=== PATIENT | female | born 1945 | race Caucasian/White ===

== ENCOUNTER 2020-03-06 09:13 | Outpatient (CLI) | payer MEDICARE, SELFPAY ==
[2020-03-06 09:46] LABS: Creatinine Urine 175.78 mg/dL (40-278)
[2020-03-06 09:47] LABS: MALB Creatinine Ratio 29.6 mg/g (0-30); Microalbumin Urine Random 52.2 mg/L
[2020-03-06 09:53] LABS: Hemoglobin A1C 6.3 % (<5.7)
[2020-03-06 10:04] LABS: Alanine Aminotransferase 18 U/L (14-59); Albumin Level 3.3 g/dL (3.4-5.0); Alkaline Phosphatase 115 U/L (46-116); Anion Gap 16.3 mmol/L (7-16); Aspartate Amino Transferase 17 U/L (15-37); Bilirubin,Total 0.9 mg/dL (0.00-1.00); Blood Urea Nitrogen 19 mg/dL (7-18); Calcium 8.9 mg/dL (8.5-10.1); Carbon Dioxide 25 mmol/L (21-32); Chloride 104 mmol/L (98-108); Estimated Glomerular Filt Rate 42; Glucose 134 mg/dL (70-99); Osmolality Calculated 296 mOsm/kg (285-295); Potassium 4.3 mmol/L (3.5-5.1); Sodium 141 mmol/L (136-145); Total Protein 6.3 g/dL (6.4-8.2)
== END 2020-03-06 09:14 | disposition home or self-care (01) ==
PROVIDERS: PCP Family Medicine; Visit Provider Family Medicine
DX: E11.9 Type 2 diabetes mellitus without complications (principal)
CPT/HCPCS: 36415; 80053; 82043; 83036

== ENCOUNTER 2020-06-14 18:50 | Emergency (ER) | payer MEDICARE, SELFPAY ==
[2020-06-14 18:54] VITALS: BP 203/105; PULSE 68; RESP 16; TEMP 36.2; O2SAT 100
--- NOTE | 2020-06-14 21:10 | ED.BACK ---
HPI - Back Pain/Injury General Chief Complaint: Back Pain/Injury Stated Complaint: sciatica in her hip Time Seen by Provider: 06/14/20 19:34 Source: patient Mode of arrival: ambulatory Limitations: no limitations History of Present Illness HPI Narrative: Patient is a 74-year-old female who presents complaining of right lower back pain that radiates into her right leg. She reports pain is sharp, burning and intermittent. She reports pain x2 days. She denies injury, denies numbness or tingling. She denies taking [id number] medications for pain. MD elicited complaint: back pain Quality: burning and sharp Related Data Home Medications Medication Instructions Recorded Confirmed nabumetone 750 mg tablet 750 mg PO BID PRN 03/05/20 Allergies Allergy/AdvReac Type Severity Reaction Status Date / Time nifedipine [Procardia] Allergy Unknown Unknown Verified 06/14/20 18:58 Review of Systems Review of Systems: Narrative: CONSTITUTIONAL: Denies fever, chills, or sweats. EYES: Denies visual changes, redness, or discharge. ENT: Denies rhinorrhea, congestion, sore throat, or otalgia. CARDIOVASCULAR: Denies chest pain, palpitations, or edema. RESPIRATORY: Denies cough or dyspnea. GASTROINTESTINAL: Denies abdominal pain, nausea, vomiting, or diarrhea. GENITOURINARY: Denies dysuria or hematuria. SKIN: Denies rash or itching. MUSCULOSKELETAL: Reports back pain, denies joint pain, or myalgia. NEUROLOGIC: Denies headache, numbness, dizziness, or weakness. PSYCHIATRIC: Denies anxiety or depression. PMFSH Past Medical History Medical History DM2 (diabetes mellitus, type 2) Gout Hyperlipidemia Hypertension Osteoarthritis Overweight Surgical History Surgical History History of cholecystectomy History of elbow surgery Social History Social History Smoking status: Never smoker Additional living arrangements comments: . 2 children. 1 step-child Additional occupation/education comments: Prior: [employer] Install[employer] Exam Narrative: Exam Narrative: GENERAL: Well-appearing, well-nourished, and in no acute distress. HEAD: Normocephalic, atraumatic. EYES: No redness or drainage. Conjunctiva are normal. ENT: Mucous membranes pink and moist. NECK: AROM. Supple. No lymphadenopathy. CHEST: No respiratory distress. Clear to auscultation. HEART: Regular rate and rhythm. No murmur appreciated. Normal peripheral pulses. MUSCULOSKELETAL: No bony tenderness. EXTREMITIES: Normal range of motion. No edema. SKIN: Warm, dry, no rash. NEURO: No focal deficits. Alert and oriented x3. PSYCH: Normal affect. No signs of depression or anxiety. Course Vital Signs Vital signs: Vital Signs Temperature 36.2 C L 06/14/20 18:54 Pulse Rate 68 06/14/20 18:54 Respiratory Rate 16 06/14/20 18:54 Blood Pressure 203/105 H 06/14/20 18:54 Pulse Oximetry 100 06/14/20 18:54 Temperature 36.2 C L 06/14/20 18:54 Pulse Rate 68 06/14/20 18:54 Respiratory Rate 16 06/14/20 18:54 Blood Pressure 203/105 H 06/14/20 18:54 Pulse Oximetry 100 06/14/20 18:54 Reviewed. Patient has been instructed to follow-up with her PCP regarding her blood pressure. Patient given 0.1mg Clonidine in the ED to decrease blood pressure from 203/105 to 161/90 MDM - Back Pain/Injury MDM Narrative Medical decision making narrative: Patient most likely has sciatica. Discussed starting Medrol dose pack and the need to check blood sugars frequently while taking and to expect that blood sugar may be higher than normal. Discussed patient's blood pressure and that follow up with pcp is needed. Patient's blood pressure treated prior to discharge. Patient verbalizes understanding. Patient is stable for discharge to home with outpatient follow up as discussed. Critical Care Time Critic
[2020-06-14] MEDS: cloNIDine HCL 0.1 MG TABLET PO (21:50)
[2020-06-14 22:03] VITALS: BP 161/90; PULSE 78; RESP 16; TEMP 36.4; O2SAT 96
== END 2020-06-14 22:04 | disposition home or self-care (01) ==
PROVIDERS: Emergency Provider Nurse Practitioner; PCP Family Medicine
DX: M54.41 Lumbago with sciatica, right side (principal); I10 Essential (primary) hypertension; E11.9 Type 2 diabetes mellitus without complications; E78.5 Hyperlipidemia, unspecified; M10.9 Gout, unspecified; M19.90 Unspecified osteoarthritis, unspecified site; E66.3 Overweight; Z68.26 Body mass index [BMI] 26.0-26.9, adult
CPT/HCPCS: 99283; A9270

== ENCOUNTER 2020-06-18 14:44 | Outpatient (CLI) | payer MEDICARE, SELFPAY | END 2020-06-18 14:45 | disposition home or self-care (01) | LOC: CHSLAB 14:47 | PROVIDERS: PCP Family Medicine; Visit Provider Family Medicine | DX: E11.9 Type 2 diabetes mellitus without complications (principal) | CPT/HCPCS: 36415; 83036 ==

== ENCOUNTER 2020-08-03 07:58 | Outpatient (CLI) | payer MEDICARE, SELFPAY ==
[2020-08-03 09:27] LABS: Anion Gap 10 mmol/L (8-16); Blood Urea Nitrogen 29 mg/dL (7-18); Carbon Dioxide 26 mmol/L (21-32); Chloride 105 mmol/L (98-108); Estimated Glomerular Filt Rate 36; Glucose 130 mg/dL (70-99); Osmolality Calculated 299 mOsm/kg (285-295); Potassium 4.6 mmol/L (3.5-5.1); Sodium 141 mmol/L (136-145)
== END 2020-08-03 07:59 | disposition home or self-care (01) ==
LOC: CHSLAB 08:00
PROVIDERS: PCP Family Medicine; Visit Provider Family Medicine
DX: N18.9 Chronic kidney disease, unspecified (principal)
CPT/HCPCS: 36415; 80048

== ENCOUNTER 2020-10-19 08:59 | Outpatient (CLI) | payer MEDICARE, SELFPAY ==
[2020-10-19 09:21] LABS: Hemoglobin A1C 5.7 % (<5.7)
[2020-10-19 10:00] LABS: Anion Gap 10 mmol/L (8-16); Blood Urea Nitrogen 18 mg/dL (7-18); Calcium 8.7 mg/dL (8.5-10.1); Carbon Dioxide 28 mmol/L (21-32); Chloride 100 mmol/L (98-108); Estimated Glomerular Filt Rate 52; Glucose 135 mg/dL (70-99); Osmolality Calculated 289 mOsm/kg (285-295); Potassium 3.8 mmol/L (3.5-5.1); Sodium 138 mmol/L (136-145)
== END 2020-10-19 09:00 | disposition home or self-care (01) ==
LOC: CHSLAB 09:01
PROVIDERS: PCP Family Medicine; Visit Provider Family Medicine
DX: N18.9 Chronic kidney disease, unspecified (principal); E11.9 Type 2 diabetes mellitus without complications
CPT/HCPCS: 36415; 80048; 83036

== ENCOUNTER 2020-12-04 07:47 | Outpatient (CLI) | payer MEDICARE, SELFPAY ==
--- NOTE | ~2020-12-04 | US_ITS ---
US retroperitoneal comp 12/04/2020 08:32 Procedure: Realtime transabdominal ultrasound of the kidneys and bladder. Indication: Chronic kidney disease Comparison: 05/04/2017 Findings: Renal echotexture is normal bilaterally without hydronephrosis, contour deforming mass or r enal calculus. The right kidney measures 9.5 cm and left kidney measures 8 cm. Bladder within normal limits. Impression: 1: Unremarkable renal ultrasound. No stones, masses or hydronephrosis. Reviewed, dictated and finalized at location A. Impression: 1: Unremarkable renal ultrasound. No stones, masses or hydronephrosis.
== END 2020-12-04 07:48 | disposition home or self-care (01) ==
LOC: CHSIMG 07:50
PROVIDERS: PCP Family Medicine; Visit Provider Internal Medicine Nephrology
DX: N18.32 Chronic kidney disease, stage 3b (principal)
CPT/HCPCS: 76770

== ENCOUNTER 2021-01-02 09:13 | Outpatient (CLI) | payer MEDICARE, SELFPAY ==
[2021-01-02 09:49] LABS: Creatinine Urine 90.28 mg/dL (40-278); Total Protein Urine Random 13.1 mg/dL (0.0-11.9); Ur Ttl Prot Creatinine Ratio 0.15 mg/mg (0-0.20)
[2021-01-02 10:26] LABS: Albumin Level 2.6 g/dL (3.4-5.0); Anion Gap 8 mmol/L (8-16); Blood Urea Nitrogen 16 mg/dL (7-18); Calcium 8.4 mg/dL (8.5-10.1); Carbon Dioxide 29 mmol/L (21-32); Chloride 103 mmol/L (98-108); Estimated Glomerular Filt Rate 55; Glucose 141 mg/dL (70-99); Osmolality Calculated 293 mOsm/kg (285-295); Phosphorus 4.1 mg/dL (2.6-4.7); Potassium 3.8 mmol/L (3.5-5.1); Sodium 140 mmol/L (136-145)
== END 2021-01-02 09:14 | disposition home or self-care (01) ==
LOC: CHSLAB 09:15
PROVIDERS: PCP Family Medicine; Visit Provider Internal Medicine Nephrology
DX: E11.29 Type 2 diabetes mellitus with other diabetic kidney complication (principal); I12.9 Hypertensive chronic kidney disease with stage 1 through stage 4 chronic kidney disease, or unspecified chronic kidney disease; N18.31 Chronic kidney disease, stage 3a
CPT/HCPCS: 36415; 80069; 82570; 84156

== ENCOUNTER 2021-06-06 07:26 | Outpatient (CLI) | payer MEDICARE, SELFPAY ==
[2021-06-06 07:45] LABS: Creatinine Urine 56.71 mg/dL (40-278); Total Protein Urine Random 16.1 mg/dL (0.0-11.9); Ur Ttl Prot Creatinine Ratio 0.28 mg/mg (0-0.20)
[2021-06-06 08:28] LABS: Albumin Level 3.2 g/dL (3.4-5.0); Anion Gap 10 mmol/L (8-16); Calcium 8.6 mg/dL (8.5-10.1); Carbon Dioxide 26 mmol/L (21-32); Chloride 106 mmol/L (98-108); Estimated Glomerular Filt Rate 52; Glucose 122 mg/dL (70-99); Phosphorus 4.1 mg/dL (2.6-4.7); Potassium 4.1 mmol/L (3.5-5.1); Sodium 142 mmol/L (136-145)
[2021-06-06 09:00] LABS: Blood Urea Nitrogen 23 mg/dL (7-18); Osmolality Calculated 298 mOsm/kg (285-295)
[2021-06-09 20:01] LABS: Vitamin D 25 Hydroxy 10 ng/mL (30-100)
[2021-06-10 14:46] LABS: Parathyroid Intact 91 pg/mL (14-64)
== END 2021-06-06 07:27 | disposition home or self-care (01) ==
LOC: CHSLAB 07:28
PROVIDERS: PCP Family Medicine; Visit Provider Internal Medicine Nephrology
DX: N18.31 Chronic kidney disease, stage 3a (principal); I12.9 Hypertensive chronic kidney disease with stage 1 through stage 4 chronic kidney disease, or unspecified chronic kidney disease; E11.29 Type 2 diabetes mellitus with other diabetic kidney complication; R80.8 Other proteinuria
CPT/HCPCS: 36415; 80069; 82306; 82570; 83970; 84156

== ENCOUNTER 2021-10-09 08:48 | Outpatient (CLI) | payer MEDICARE, SELFPAY ==
[2021-10-09 09:50] LABS: Albumin Level 3.5 g/dL (3.4-5.0); Anion Gap 9 mmol/L (8-16); Blood Urea Nitrogen 27 mg/dL (7-18); Calcium 8.7 mg/dL (8.5-10.1); Carbon Dioxide 27 mmol/L (21-32); Chloride 103 mmol/L (98-108); Estimated Glomerular Filt Rate 48; Glucose 133 mg/dL (70-99); Osmolality Calculated 295 mOsm/kg (285-295); Phosphorus 4.4 mg/dL (2.6-4.7); Potassium 4.2 mmol/L (3.5-5.1); Sodium 139 mmol/L (136-145)
== END 2021-10-09 08:49 | disposition home or self-care (01) ==
LOC: CHSLAB 08:51
PROVIDERS: PCP Family Medicine; Visit Provider Internal Medicine Nephrology
DX: N18.31 Chronic kidney disease, stage 3a (principal)
CPT/HCPCS: 36415; 80069

== ENCOUNTER 2022-01-02 08:35 | Outpatient (CLI) | payer MEDICARE, SELFPAY ==
[2022-01-02 09:58] LABS: Albumin Level 3.2 g/dL (3.4-5.0); Anion Gap 9 mmol/L (8-16); Blood Urea Nitrogen 21 mg/dL (7-18); Calcium 8.7 mg/dL (8.5-10.1); Carbon Dioxide 26 mmol/L (21-32); Chloride 104 mmol/L (98-108); Estimated Glomerular Filt Rate 44; Glucose 210 mg/dL (70-99); Osmolality Calculated 297 mOsm/kg (285-295); Phosphorus 4.2 mg/dL (2.6-4.7); Potassium 4.2 mmol/L (3.5-5.1); Sodium 139 mmol/L (136-145)
== END 2022-01-02 08:36 | disposition home or self-care (01) ==
LOC: CHSLAB 08:38
PROVIDERS: PCP Family Medicine; Visit Provider Internal Medicine Nephrology
DX: N18.31 Chronic kidney disease, stage 3a (principal)
CPT/HCPCS: 36415; 80069

== ENCOUNTER 2022-05-23 08:23 | Outpatient (CLI) | payer MEDICARE, SELFPAY ==
[2022-05-23 08:42] LABS: Creatinine Urine 72.87 mg/dL (40-278); Total Protein Urine Random 10.2 mg/dL (0.0-11.9); Ur Ttl Prot Creatinine Ratio 0.14 mg/mg (0-0.20)
[2022-05-23 08:48] LABS: Albumin Level 3.2 g/dL (3.4-5.0); Anion Gap 9 mmol/L (8-16); Blood Urea Nitrogen 25 mg/dL (7-18); Calcium 8.6 mg/dL (8.5-10.1); Carbon Dioxide 27 mmol/L (21-32); Chloride 104 mmol/L (98-108); Estimated Glomerular Filt Rate 45; Phosphorus 4.2 mg/dL (2.6-4.7); Potassium 3.8 mmol/L (3.5-5.1); Sodium 140 mmol/L (136-145)
[2022-05-23 08:53] LABS: Glucose 169 mg/dL (70-99); Osmolality Calculated 298 mOsm/kg (285-295)
[2022-05-26 19:41] LABS: Parathyroid Intact 85 pg/mL (14-64)
[2022-05-31 12:33] LABS: Vitamin D 25 Hydroxy 29 ng/mL (30-100)
== END 2022-05-23 08:24 | disposition home or self-care (01) ==
LOC: CHSLAB 08:25
PROVIDERS: PCP Family Medicine; Visit Provider Internal Medicine Nephrology
DX: N18.31 Chronic kidney disease, stage 3a (principal); E55.9 Vitamin D deficiency, unspecified; E21.1 Secondary hyperparathyroidism, not elsewhere classified
CPT/HCPCS: 36415; 80069; 82306; 82570; 83970; 84156

== ENCOUNTER 2022-10-03 07:56 | Outpatient (CLI) | payer MEDICARE, SELFPAY ==
[2022-10-03 08:17] LABS: Creatinine Urine 114.75 mg/dL (40-278); Total Protein Urine Random 14.5 mg/dL (0.0-11.9); Ur Ttl Prot Creatinine Ratio 0.13 mg/mg (0-0.20)
[2022-10-03 08:53] LABS: Albumin Level 3.3 g/dL (3.4-5.0); Anion Gap 11 mmol/L (8-16); Blood Urea Nitrogen 15 mg/dL (7-18); Calcium 8.6 mg/dL (8.5-10.1); Carbon Dioxide 27 mmol/L (21-32); Chloride 104 mmol/L (98-108); Estimated Glomerular Filt Rate 45; Glucose 209 mg/dL (70-99); Osmolality Calculated 300 mOsm/kg (285-295); Phosphorus 4.1 mg/dL (2.6-4.7); Potassium 3.9 mmol/L (3.5-5.1); Sodium 142 mmol/L (136-145)
== END 2022-10-03 07:57 | disposition home or self-care (01) ==
LOC: CHSLAB 07:58
PROVIDERS: PCP Family Medicine; Visit Provider Internal Medicine Nephrology
DX: N18.31 Chronic kidney disease, stage 3a (principal); E11.29 Type 2 diabetes mellitus with other diabetic kidney complication; I12.9 Hypertensive chronic kidney disease with stage 1 through stage 4 chronic kidney disease, or unspecified chronic kidney disease
CPT/HCPCS: 36415; 80069; 82570; 84156

== ENCOUNTER 2023-02-24 08:44 | Outpatient (CLI) | payer MEDICARE, SELFPAY ==
[2023-02-24 09:08] LABS: Creatinine Urine 51.17 mg/dL (40-278); Total Protein Urine Random < 7.0 mg/dL (0.0-11.9); Ur Ttl Prot Creatinine Ratio 0.14 mg/mg (0-0.20)
[2023-02-24 10:07] LABS: Albumin Level 3.2 g/dL (3.4-5.0); Anion Gap 12 mmol/L (8-16); Blood Urea Nitrogen 14 mg/dL (7-18); Calcium 8.7 mg/dL (8.5-10.1); Carbon Dioxide 24 mmol/L (21-32); Chloride 104 mmol/L (98-108); Estimated Glomerular Filt Rate 49; Glucose 126 mg/dL (70-99); Osmolality Calculated 292 mOsm/kg (285-295); Potassium 4.2 mmol/L (3.5-5.1); Sodium 140 mmol/L (136-145)
[2023-02-28 14:18] LABS: Parathyroid Intact 49 pg/mL (14-64)
[2023-03-01 17:44] LABS: Vitamin D 25 Hydroxy 31 ng/mL (30-100)
== END 2023-02-24 08:45 | disposition home or self-care (01) ==
LOC: CHSLAB 08:46
PROVIDERS: PCP Family Medicine; Visit Provider Internal Medicine Nephrology
DX: E11.22 Type 2 diabetes mellitus with diabetic chronic kidney disease (principal); E55.9 Vitamin D deficiency, unspecified; I12.9 Hypertensive chronic kidney disease with stage 1 through stage 4 chronic kidney disease, or unspecified chronic kidney disease; N25.81 Secondary hyperparathyroidism of renal origin; N18.31 Chronic kidney disease, stage 3a
CPT/HCPCS: 36415; 80069; 82306; 82570; 83970; 84156

== ENCOUNTER 2023-05-26 13:09 | Outpatient (CLI) | payer MEDICARE, SELFPAY ==
[2023-05-26 13:33] LABS: Prothrombin Time 10.9 Seconds (9.50-12.10)
== END 2023-05-26 13:10 | disposition home or self-care (01) ==
LOC: CHSLAB 13:11
PROVIDERS: PCP Family Medicine; Visit Provider Family Medicine
DX: R04.0 Epistaxis (principal)
CPT/HCPCS: 36415; 85610